=== PATIENT | female | born 1980 | race Caucasian/White ===

== ENCOUNTER 2017-04-03 13:49 | Emergency (ER) | payer OTHER ==
[2017-04-03 13:53] VITALS: BP 137/93; PULSE 94; RESP 18; TEMP 98.3
[2017-04-03] MEDS ORDERED: HYDROcodone/APAP 5-325MG 1 EACH TAB PO STA (14:33)
--- NOTE | 2017-04-03 14:33 | XR ---
EXAMINATION TYPE: XR hand complete RT DATE OF EXAM: 04/03/2017 2:27 PM COMPARISON: NONE HISTORY: Pain TECHNIQUE: Three views are submitted. FINDINGS: The osseous structures are intact. The joint spaces are preserved and there is no acute fracture or dislocation. IMPRESSION: 1. No definite acute fracture or dislocation if symptoms persist, follow-up study in 7 to 10 days wo uld be suggested
--- NOTE | 2017-04-03 14:35 | XR ---
EXAM TYPE: LUMBAR SPINE X RAY SERIES COMPARISON: 09/01/2014 HISTORY: low back pain TECHNIQUE: 4 views are submitted. FINDINGS: Alignment is anatomic. The pedicles are intact. The transverse processes are intact. There is no s pondylolysis or spondylolisthesis. Mild hypertrophic changes of the spine. IMPRESSION: 1. No acute process.
--- NOTE | 2017-04-03 14:39 | ED ---
Fall HPI - General Chief Complaint: Fall Stated Complaint: Fall/hand & back pain Time Seen by Provider: 04/03/17 14:10 Source: patient, RN notes reviewed Mode of arrival: ambulatory - History of Present Illness Initial Comments: Patient is a 36-year-old female presents to the emergency room for evaluation of fall injury. Patient states that she was helping out with a moving company and slipped and fell down a step catching herself with her right hand and landing on her low back. Patient states she has history of lower back pain. Patient states low back pain has been worsening ever since the fall. Patient also states she has been having worsening right dorsal hand pain. Patient denies numbness or tingling going down her legs. Patient denies saddle anesthesia. Patient denies fecal or urinary incontinence. Patient states she has been taking ibuprofen at home with no relief of symptoms. Patient denies any head trauma during the incident. Patient denies headache, nausea, changes in vision, ear pain, neck pain. Patient denies taking any blood thinners. Patient denies any other injuries during incident. - Related Data Home Medications Medication Instructions Recorded Confirmed Ibuprofen [Motrin] 600 mg PO Q8HR PRN 12/14/15 01/06/16 Butalb/Asprin/Caff 50-325-40Mg 1 tab PO DIRECTED 01/06/16 01/06/16 [Fiorinal 50-325-40 MG] Previous Rx's Medication Instructions Recorded Hydrocodone/Acetaminophen [[place] 1 tab PO Q6HR PRN #20 tab 12/17/15 5-325] HYDROcodone/APAP 5-325MG [[place] 1 tab PO Q6HR PRN #12 tab 04/03/17 5-325] Allergies Allergy/AdvReac Type Severity Reaction Status Date / Time No Known Allergies Allergy Verified 04/03/17 13:53 Review of Systems ROS Statement: Those systems with pertinent positive or pertinent negative responses have been documented in the HPI. ROS Other: All systems not noted in ROS Statement are negative. Past Medical History Additional Past Medical History / Comment(s): headaches. back problems History of Any Multi-Drug Resistant Organisms: None Reported Past Surgical History: Cholecystectomy Past Psychological History: No Psychological Hx Reported Smoking Status: Current some day smoker Past Alcohol Use History: Occasional Past Drug Use History: None Reported General Exam - General Exam Comments Initial Comments: Sitting in exam room, no acute distress. Limitations: no limitations General appearance: alert, in no apparent distress Head exam: Present: atraumatic, normocephalic, normal inspection Eye exam: Present: normal appearance ENT exam: Present: normal exam Neck exam: Present: normal inspection Respiratory exam: Present: normal lung sounds bilaterally. Absent: respiratory distress Cardiovascular Exam: Present: regular rate, normal rhythm, normal heart sounds Right Hand Wrist exam: Present: tenderness (Dorsal hand over the third metacarpal), swelling (Swelling and tenderness over the third MCP joint of the hand). Absent : full ROM (Limited flexion at the MCP joints secondary to pain) Neuro motor exam: Present: wrist extension intact, thumb opposition intact, thumb IP flexion intact, thumb adduction intact, fingers 2-5 abduction intact Vascular: Present: normal capillary refill (Capillary refill less than 2 seconds ), radial pulse (2+), ulnar pulse (2+) Back exam: Present: tenderness (Right-sided low back pain), paraspinal tenderness (Lumbosacral spine), vertebral tenderness (Lumbosacral spine) Neurological exam: Present: alert, oriented X3, CN II-XII intact, normal gait Psychiatric exam: Present: normal affect, normal mood Skin exam: Present: other (Patient has multiple bruises over bilateral arms and legs.) Course Vital Signs 04/03/17 13:50 Temperature 98.3 F Pulse Rate 94 Respiratory 18 Rate Blood Pressure 137/93 O2 Sat by Pulse 99 Oximetry Medical Decision Making - Medical Decision Making Patient is a 36-year-old female presents to the emergency room for evaluation of fall injury. Patient is complaining of low back pain and right hand pain. On physical examination patient noted to have multiple bruises over bilateral arms and legs. Patient does state that she bruises easily and takes iron pills. Patient states while she was helping move, she was bumping against different objects. I did ask patient if she felt safe at home. Patient states she lives by herself and feels safe. Patient denies any abuse. Patient states the bruises are from moving heavy objects. Right hand and lumbosacral x-ray negative for any acute findings. Right hand wrapped in Gaurav wrap. Advised patient to follow-up with primary care provider symptoms are not improving in 7- 10 days. Patient will be sent home with pain medications. Patient states she understands everything that was discussed with her. Return parameters discussed. Case discussed with Dr. Stover. - Radiology Data Radiology results: report reviewed, image reviewed Disposition Clinical Impression: Fall, Sprain of right hand, Low back pain Disposition: HOME SELF-CARE Condition: Good Instructions: Acute Low Back Pain (ED), Hand Sprain (ED) Additional Instructions: Ice on and off for 10-15 minutes for the next 24-48 hours. Take ibuprofen as needed for pain. Take [place] as needed for severe pain. Please follow-up with primary care provider for reevaluation this week. If new symptoms develop or symptoms worsen, please return to the ER. Prescriptions: HYDROcodone/APAP 5-325MG [[place] 5-325] 1 tab PO Q6HR PRN #12 tab PRN Reason: Pain Referrals: Fatemeh Correa MD [Primary Care Provider] - 1-2 days Time of Disposition: 14:43
== END 2017-04-03 14:53 | disposition home or self-care (01) ==
LOC: EC 13:49
DX: S63.8X1A Sprain of other part of right wrist and hand, initial encounter (principal); S40.021A Contusion of right upper arm, initial encounter; S40.022A Contusion of left upper arm, initial encounter; S80.11XA Contusion of right lower leg, initial encounter; S80.12XA Contusion of left lower leg, initial encounter; M54.5 Low back pain; R51 Headache; F17.200 Nicotine dependence, unspecified, uncomplicated; Z79.82 Long term (current) use of aspirin; Z79.899 Other long term (current) drug therapy; W10.9XXA Fall (on) (from) unspecified stairs and steps, initial encounter
CPT/HCPCS: 72110; 99284

== ENCOUNTER 2017-06-19 12:42 | Emergency (ER) | payer OTHER ==
[2017-06-19 13:14] VITALS: BP 133/86; PULSE 74; RESP 18; TEMP 97.6
--- NOTE | 2017-06-19 13:24 | ED ---
General Adult HPI - General Chief complaint: ENT Stated complaint: Ear Pain Time Seen by Provider: 06/19/17 13:11 Source: patient, RN notes reviewed Mode of arrival: ambulatory Limitations: no limitations - History of Present Illness Initial comments: 36-year-old female presents to the emergency Department chief complaint of pain to the right ear. Patient is aggressively she's has noticed this pain she states it's right below the right ear in front of the right ear. Patient states that it is tender to touch she's noticed some redness. Patient denies any fever chills with this. Patient states she started damage does have a few cuts to the right ear. Patient states she's having abdominal pain closing the mouth. Patient denies any fevers. Patient states he continues to ache in the sore however so she was concerned. Patient denies any nausea vomiting with this. Patient has any history of this in the past. Patient states she is not currently having any other symptoms at this time.Patient denies any recent fever , chills, shortness of breath, chest pain, back pain, abdominal pain, nausea vomiting, numbness or tingling, dysuria or hematuria, constipation or diarrhea, headaches or visual changes, or any other current symptoms. - Related Data Home Medications Medication Instructions Recorded Confirmed Ibuprofen [Motrin] 600 mg PO Q8HR PRN 12/14/15 01/06/16 Butalb/Asprin/Caff 50-325-40Mg 1 tab PO DIRECTED 01/06/16 01/06/16 [Fiorinal 50-325-40 MG] Previous Rx's Medication Instructions Recorded Hydrocodone/Acetaminophen [[place] 1 tab PO Q6HR PRN #20 tab 12/17/15 5-325] HYDROcodone/APAP 5-325MG [[place] 1 tab PO Q6HR PRN #12 tab 04/03/17 5-325] Amoxicillin/Potassium Clav 1 tab PO Q12HR #20 tab 06/19/17 [Augmentin 875-125 Tablet] Ibuprofen [Motrin] 600 mg PO Q6HR PRN #20 tab 06/19/17 Allergies Allergy/AdvReac Type Severity Reaction Status Date / Time No Known Allergies Allergy Verified 04/03/17 13:53 Review of Systems ROS Statement: Those systems with pertinent positive or pertinent negative responses have been documented in the HPI. ROS Other: All systems not noted in ROS Statement are negative. Past Medical History Additional Past Medical History / Comment(s): headaches. back problems History of Any Multi-Drug Resistant Organisms: None Reported Past Surgical History: Cholecystectomy Past Psychological History: No Psychological Hx Reported Smoking Status: Current some day smoker Past Alcohol Use History: Occasional Past Drug Use History: None Reported General Exam Limitations: no limitations General appearance: alert, in no apparent distress Head exam: Present: atraumatic, normocephalic, normal inspection Eye exam: Present: normal appearance, PERRL, EOMI. Absent: scleral icterus, conjunctival injection, periorbital swelling ENT exam: Present: normal exam, mucous membranes moist, TM's normal bilaterally. Absent: normal external ear exam (Patient does appear to have some tenderness in the anterior right ear and into the parotid gland. No mastoid tenderness noted.) Neck exam: Present: normal inspection. Absent: tenderness, meningismus, lymphadenopathy Respiratory exam: Present: normal lung sounds bilaterally. Absent: respiratory distress, wheezes, rales, rhonchi, stridor Cardiovascular Exam: Present: regular rate, normal rhythm, normal heart sounds. Absent: systolic murmur, diastolic murmur, rubs, gallop, clicks Neurological exam: Present: alert, oriented X3 Psychiatric exam: Present: normal affect, normal mood Skin exam: Present: warm, dry, intact, normal color. Absent: rash Course Vital Signs 06/19/17 13:11 Temperature 97.6 F Pulse Rate 74 Respiratory 18 Rate Blood Pressure 133/86 O2 Sat by Pulse 99 Oximetry Medical Decision Making - Medical Decision Making 36-year-old female presents emergency department with chief complaint of pain. This time there is concern for possible parotitis versus localized infection. She does have 2 superficial cuts to bilateral auricles. This time we will start patient on Augmentin. We discussed return parameters and follow-up. We discussed all the patient's questions. She stated that she understood and she is in agreement with plan. All questions have been answered. She'll be discharged home. Disposition Clinical Impression: Right ear pain Disposition: HOME SELF-CARE Condition: Stable Instructions: Earache (ED) Additional Instructions: Please use medication as discussed. Please follow up with family doctor if symptoms have not improved over the next two days. Please return to the emergency room if your symptoms increase or worsen or for any other concerns. Prescriptions: Amoxicillin/Potassium Clav [Augmentin 875-125 Tablet] 1 tab PO Q12HR #20 tab Ibuprofen [Motrin] 600 mg PO Q6HR PRN #20 tab PRN Reason: Pain Referrals: Fatemeh Correa MD [Primary Care Provider] - 1-2 days Time of Disposition: 13:24
[2017-06-19] MEDS ORDERED: IBUPROFEN 600 MG STARTER PACK 4 TAB BTL PO STA (13:29)
== END 2017-06-19 13:38 | disposition home or self-care (01) ==
LOC: EC 12:42
DX: H92.01 Otalgia, right ear (principal); S01.312A Laceration without foreign body of left ear, initial encounter; S01.311A Laceration without foreign body of right ear, initial encounter; R10.9 Unspecified abdominal pain; F17.200 Nicotine dependence, unspecified, uncomplicated; Z90.49 Acquired absence of other specified parts of digestive tract; Z79.899 Other long term (current) drug therapy; W45.8XXA Other foreign body or object entering through skin, initial encounter
CPT/HCPCS: 99282

== ENCOUNTER 2017-06-28 10:24 | Emergency (ER) | payer OTHER ==
--- NOTE | 2017-06-28 11:41 | ED ---
General Adult HPI - General Chief complaint: Eye Problems Stated complaint: right eye pain Time Seen by Provider: 06/28/17 11:21 Source: patient, RN notes reviewed, old records reviewed Mode of arrival: ambulatory Limitations: no limitations - History of Present Illness Initial comments: This is a 36-year-old female here for diversion of eye pain and right eye pain. Patient states she does do work and agree patient got something are 2 days ago , symptoms are worsening at this time. Patient denies change in vision, denies any other pain or headache. Patient has had a complaints - Related Data Previous Rx's Medication Instructions Recorded Ibuprofen [Motrin] 600 mg PO Q6HR PRN #20 tab 06/19/17 Tobramycin 0.3% Ophth Soln [Tobrex 1 - 2 drop RIGHT EYE Q4H #1 bottle 06/28/17 0.3% Ophth Soln] Allergies Allergy/AdvReac Type Severity Reaction Status Date / Time No Known Allergies Allergy Verified 06/28/17 11:04 Review of Systems ROS Statement: Those systems with pertinent positive or pertinent negative responses have been documented in the HPI. ROS Other: All systems not noted in ROS Statement are negative. Past Medical History Additional Past Medical History / Comment(s): headaches. back problems History of Any Multi-Drug Resistant Organisms: None Reported Past Surgical History: Cholecystectomy Past Psychological History: No Psychological Hx Reported Smoking Status: Current some day smoker Past Alcohol Use History: Occasional Past Drug Use History: None Reported General Exam - General Exam Comments Initial Comments: Right eye corneal abrasion Limitations: no limitations General appearance: alert, in no apparent distress Head exam: Present: atraumatic, normocephalic, normal inspection Eye exam: Present: normal appearance, PERRL, EOMI. Absent: scleral icterus, conjunctival injection, periorbital swelling ENT exam: Present: normal exam, mucous membranes moist Neck exam: Present: normal inspection. Absent: tenderness, meningismus, lymphadenopathy Respiratory exam: Present: normal lung sounds bilaterally. Absent: respiratory distress, wheezes, rales, rhonchi, stridor Cardiovascular Exam: Present: regular rate, normal rhythm, normal heart sounds. Absent: systolic murmur, diastolic murmur, rubs, gallop, clicks GI/Abdominal exam: Present: soft, normal bowel sounds. Absent: distended, tenderness, guarding, rebound, rigid Extremities exam: Present: normal inspection, full ROM, normal capillary refill. Absent: tenderness, pedal edema, joint swelling, calf tenderness Back exam: Present: normal inspection Neurological exam: Present: alert, oriented X3, CN II-XII intact Psychiatric exam: Present: normal affect, normal mood Skin exam: Present: warm, dry, intact, normal color. Absent: rash Course Vital Signs 06/28/17 06/28/17 10:44 11:54 Temperature 97.3 F L 98 F Pulse Rate 78 69 Respiratory 17 20 Rate Blood Pressure 156/86 132/73 O2 Sat by Pulse 95 100 Oximetry - Reevaluation(s) Reevaluation #1: Patient has adequate pain control Medical Decision Making - Medical Decision Making 89 female the ER for evaluation of a foreign body corneal abrasion no foreign body and I this time. Patient does have abrasion will treat with eyedrops and discharged home Disposition Clinical Impression: Foreign body of right eye, Corneal abrasion, right Disposition: HOME SELF-CARE Condition: Good Instructions: Corneal Abrasion (ED) Prescriptions: Tobramycin 0.3% Ophth Soln [Tobrex 0.3% Ophth Soln] 1 - 2 drop RIGHT EYE Q4H #1 bottle Referrals: Fatemeh Correa MD [Primary Care Provider] - 1-2 days
[2017-06-28 11:55] VITALS: BP 132/73; PULSE 69; RESP 20; TEMP 98
== END 2017-06-28 12:04 | disposition home or self-care (01) ==
LOC: EC 10:24
DX: T15.01XA Foreign body in cornea, right eye, initial encounter (principal); F17.200 Nicotine dependence, unspecified, uncomplicated; X58.XXXA Exposure to other specified factors, initial encounter
CPT/HCPCS: 99283

== ENCOUNTER 2017-11-28 14:46 | Emergency (ER) | payer OTHER ==
[2017-11-28 14:52] VITALS: BP 147/89; PULSE 90; RESP 18; TEMP 97.2
--- NOTE | 2017-11-28 15:20 | ED ---
Lower Extremity Injury HPI - General Chief Complaint: Extremity Injury, Lower Stated Complaint: Fall/Knee Pain Time Seen by Provider: 11/28/17 14:58 Source: patient Mode of arrival: ambulatory Limitations: no limitations - History of Present Illness Initial Comments: 37-year-old female patient presents to the emergency department today for complaints of right lower leg bruising and pain. Patient states that she had a slip and fall accident approximately one week ago. She states that she slipped and fell forward landing on her knee. She states that since then she's had swelling and bruising to the leg. She states that the bruising seems to be spreading. She denies any numbness or tingling to the leg. She is able to ambulate without difficulty. She states that she has been taking ibuprofen and applying ice without relief of symptoms. She denies hitting her head or losing consciousness during the fall. Denies any other injuries. Patient denies any headache, neck pain, back pain, chest pain, shortness of breath, dizziness, weakness, abdominal pain, nausea, vomiting, or difficulties with bowel movements or urination. - Related Data Home Medications Medication Instructions Recorded Confirmed Ibuprofen [Motrin] 200 - 400 mg PO Q4H PRN 11/28/17 11/28/17 Previous Rx's Medication Instructions Recorded Ibuprofen [Motrin] 600 mg PO Q8HR PRN #30 tab 11/28/17 Allergies Allergy/AdvReac Type Severity Reaction Status Date / Time No Known Allergies Allergy Verified 11/28/17 15:21 Review of Systems ROS Statement: Those systems with pertinent positive or pertinent negative responses have been documented in the HPI. ROS Other: All systems not noted in ROS Statement are negative. Past Medical History Additional Past Medical History / Comment(s): headaches. back problems History of Any Multi-Drug Resistant Organisms: None Reported Past Surgical History: Cholecystectomy Past Psychological History: No Psychological Hx Reported Smoking Status: Current some day smoker Past Alcohol Use History: Occasional Past Drug Use History: Marijuana General Exam Limitations: no limitations General appearance: alert, in no apparent distress, other (This is a well- developed, well-nourished adult female patient in no acute distress. Vital signs upon presentation were temperature 97.2F, pulse 90, respirations 18, blood pressure 147/89, pulse ox 100% on room air.) Eye exam: Present: normal appearance, PERRL, EOMI. Absent: scleral icterus, conjunctival injection, periorbital swelling Neck exam: Present: normal inspection, full ROM. Absent: tenderness, meningismus, lymphadenopathy Respiratory exam: Present: normal lung sounds bilaterally. Absent: respiratory distress, wheezes, rales, rhonchi, stridor Cardiovascular Exam: Present: regular rate, normal rhythm, normal heart sounds. Absent: systolic murmur, diastolic murmur, rubs, gallop, clicks Extremities exam: Present: full ROM, tenderness (Tenderness over the anterior aspect of the right lower leg.), normal capillary refill, other (Hematoma noted to the right lower leg over the proximal tib-fib. There is purplish ecchymosis extending down the anterior [place] and over the medial aspect of the calf. Skin is otherwise pink, warm, and dry. Cap refills less than 3 seconds. Pedal and posttibial pulses are 2+ and equal bilaterally.). Absent: normal inspection, pedal edema, joint swelling, calf tenderness Back exam: Present: normal inspection. Absent: vertebral tenderness Neurological exam: Present: alert, oriented X3, CN II-XII intact Psychiatric exam: Present: normal affect, normal mood Skin exam: Present: warm, dry, intact, normal color. Absent: rash Course Vital Signs 11/28/17 14:48 Temperature 97.2 F L Pulse Rate 90 Respiratory 18 Rate Blood Pressure 147/89 O2 Sat by Pulse 100 Oximetry Medical Decision Making - Medical Decision Making 37-year-old female patient presents to the emergency department today for evaluation of bruising and pain to the right lower leg. Physical examination does reveal what appears to be a hematoma at the proximal aspect of the right lower leg. There is ecchymosis extending down the leg over the medial calf as well. X-rays were obtained of the knee and the tib-fib which were negative for any acute fracture or dislocation. Neurovascular status was intact. Patient will be given an Gaurav wrap for compression and support. She is instructed take ibuprofen and apply ice to the area. She is instructed to follow-up with her primary care physician for recheck in 1-2 days. She is instructed to return here immediately for any new, worsening, or concerning symptoms and she verbalizes understanding and agrees with this plan. - Radiology Data Radiology results: report reviewed, image reviewed 3 views of the right knee and 4 views of the right tib-fib are obtained and showed no acute fracture dislocation. The tricompartment joint spaces appear within normal limits. The overlying soft tissue appears unremarkable. Impression by Dr. Zeng shows no acute fracture or dislocation. Disposition Clinical Impression: Hematoma of right lower extremity Disposition: HOME SELF-CARE Condition: Good Instructions: Contusion in Adults (ED), Hematoma (ED) Additional Instructions: Keep leg elevated. Apply ice at least 4 times daily. Use a compression wrap for support. Take ibuprofen for pain control. Follow-up with her primary care physician for recheck in 1-2 days. Return here immediately for any new, worsening, or concerning symptoms. Prescriptions: Ibuprofen [Motrin] 600 mg PO Q8HR PRN #30 tab PRN Reason: Pain Referrals: Faetmeh Correa MD [Primary Care Provider] - 1-2 days Time of Disposition: 15:58
--- NOTE | 2017-11-28 15:47 | XR ---
EXAMINATION TYPE: XR knee complete RT, XR tibia fibula RT DATE OF EXAM: 11/28/2017 CLINICAL HISTORY: pain TECHNIQUE: Three views of the right knee are obtained. 4 views of the right tibia and fibula are als o submitted. COMPARISON: None. FINDINGS: There is no acute fracture/dislocation. The tri-compartment joint spaces appear within no rmal limits. The overlying soft tissue appears unremarkable. IMPRESSION: There is no acute fracture or dislocation.ICD 10 NO FRACTURE, INITIAL EVALUATION
[2017-11-28] MEDS ORDERED: IBUPROFEN 600 MG TAB PO STA (16:03)
== END 2017-11-28 16:09 | disposition home or self-care (01) ==
LOC: EC 14:46
DX: S80.11XA Contusion of right lower leg, initial encounter (principal); F17.200 Nicotine dependence, unspecified, uncomplicated; W01.0XXA Fall on same level from slipping, tripping and stumbling without subsequent striking against object, initial encounter
CPT/HCPCS: 99283

== ENCOUNTER 2020-07-09 19:03 | Emergency (ER) | payer OTHER ==
[2020-07-09 19:07] VITALS: TEMP 98.5
[2020-07-09] MEDS ORDERED: DEXAMETHASONE SOD PHOSPHATE 10 MG/ML 1 ML VIAL IV STA (19:12)
[2020-07-09] MEDS ORDERED: EPINEPHrine 1 MG/ML 1 ML AMP IM STA (19:12)
[2020-07-09] MEDS ORDERED: FAMOTIDINE 20 MG/2 ML VIAL IV STA (19:12)
[2020-07-09] MEDS ORDERED: diphenhydrAMINE 50 MG/ML 1 ML VIAL IVP STA (19:12)
--- NOTE | 2020-07-09 19:15 | ED ---
General Adult HPI - General Chief complaint: Allergic Reaction Stated complaint: Allergic reaction Time Seen by Provider: 07/09/20 19:08 Source: patient Mode of arrival: wheelchair Limitations: no limitations - History of Present Illness Initial comments: Dictation was produced using [employer] dictation software. please excuse any grammatical, word or spelling errors. This patient was cared for during a federal and state declared state of emergency secondary to Covid 19 Chief Complaint: 39-year-old female presents with throat swelling after bee sting. History of Present Illness: 39-year-old female she states 20 minutes prior to arrival she was stung by a bee in her backyard. She was stung on her right elbow. Shortly after she develop urticaria. She states that her lips and her tongue feels swollen. Patient also feels a little tickle in the back of her throat. She denies any abdominal pain. She denies any shortness of breath. Patient states she's been stung by bees on multiple occasions however today was on the first time she's had a reaction like this. Patient has no other ALLERGIES. The ROS documented in this emergency department record has been reviewed and confirmed by me. Those systems with pertinent positive or negative responses have been documented in the HPI. All other systems are other negative and/or noncontributory. PHYSICAL EXAM: General Impression: Alert and oriented x3, anxious, tongue and lip swelling HEENT: Normocephalic atraumatic, extra-ocular movements intact, pupils equal and reactive to light bilaterally, mucous membranes moist. Cardiovascular: Heart regular rate and rhythm Chest: Able to complete full sentences, no retractions, no tachypnea, no wheezing with auscultation Abdomen: abdomen soft, non-tender, non-distended, no organomegaly Musculoskeletal: Pulses present and equal in all extremities, no peripheral edema Motor: no focal deficits noted Neurological: CN II-XII grossly intact, no focal motor or sensory deficits noted Skin: Diffuse urticaria Psych: Normal affect and mood ED course: 39-year-old female presents with severe ALLERGIC reaction. Vital signs upon arrival are within acceptable limits. Considering patient has airway symptoms patient given intramuscular epinephrine. Patient also given ALLERGIC cocktail including diphenhydramine, Pepcid and Decadron. Patient observed in the urgency department for more than 2 hours. Patient's symptoms are improved. At this point do not believe patient had true anaphylaxis because she only has skin involvement. She doesn't have any overwhelming upper airway symptoms. Nonetheless I still believe patient should be given prescription for epinephrine pen. She is counseled on avoidance of bees and bee stings. She is given counseling on how to administer epinephrine pen. - Related Data Home Medications Medication Instructions Recorded Confirmed Ibuprofen [Motrin] 200 - 400 mg PO Q4H PRN 11/28/17 11/28/17 Previous Rx's Medication Instructions Recorded Ibuprofen [Motrin] 600 mg PO Q8HR PRN #30 tab 11/28/17 EPINEPHrine (Auto Inject) [Epipen] 0.3 mg IM ONCE PRN #2 pen 07/09/20 Allergies Allergy/AdvReac Type Severity Reaction Status Date / Time No Known Allergies Allergy Verified 07/09/20 19:07 Review of Systems ROS Statement: Those systems with pertinent positive or pertinent negative responses have been documented in the HPI. ROS Other: All systems not noted in ROS Statement are negative. Past Medical History Additional Past Medical History / Comment(s): headaches. back problems History of Any Multi-Drug Resistant Organisms: None Reported Past Surgical History: Cholecystectomy Past Psychological History: No Psychological Hx Reported Smoking Status: Current every day smoker Past Alcohol Use History: Occasional Past Drug Use History: Marijuana General Exam Limitations: no limitations Course Vital Signs 07/09/20 07/09/20 07/09/20 19:05 20:00 21:00 Temperature 98.5 F Pulse Rate 118 H 91 86 Respiratory 24 20 18 Rate Blood Pressure 124/74 143/98 143/90 O2 Sat by Pulse 95 99 99 Oximetry Disposition Clinical Impression: Allergic reaction Disposition: HOME SELF-CARE Condition: Good Instructions (If sedation given, give patient instructions): Anaphylaxis (ED) Additional Instructions: UR given a prescription for epinephrine auto injector's. These are to be used if you are stung by a bee and experience symptoms of severe ALLERGIC reaction. You are to inject yourself in the thigh and come directly to the emergency department. Prescriptions: EPINEPHrine (Auto Inject) [Epipen] 0.3 mg IM ONCE PRN #2 pen PRN Reason: Anaphylaxis Is patient prescribed a controlled substance at d/c from ED?: No Referrals: Fatemeh Correa MD [Primary Care Provider] - 1-2 days Time of Disposition: 21:20
[2020-07-09 21:04] VITALS: BP 143/90; PULSE 86; RESP 18
== END 2020-07-09 21:27 | disposition home or self-care (01) ==
LOC: EC 19:03
DX: T63.441A Toxic effect of venom of bees, accidental (unintentional), initial encounter (principal); L50.0 Allergic urticaria; F17.200 Nicotine dependence, unspecified, uncomplicated
CPT/HCPCS: 96372; 96374; 96375; 99283